=== PATIENT | male | born 1945 | race Caucasian/White ===

== ENCOUNTER 2021-04-05 07:04 | Day surgery (SDC) | payer OTHER ==
--- NOTE | 2021-04-04 17:25 | RAD REPORT ---
EXAM DESCRIPTION: RAD - Chest Pa And Lat (2 Views) - 04/04/2021 5:16 pm CLINICAL HISTORY: PRE-OP COMPARISON: <Comparisons> FINDINGS: Lines: None. Lungs: No evidence of edema or pneumonia. Nodule located peripherally in the right mid lung. Pleural: No significant pleural effusions or pneumothorax. Cardiac: The heart size is within normal limits. Bones: No acute fractures. Other: IMPRESSION: No acute cardiopulmonary disease.
[2021-04-04 17:32] LABS: Absolute Lymphocytes (CBC) 1.8 K/uL (0.7-4.9); Basophils % 1.2 % (0-1.3); Hematocrit 42.6 % (39.6-49.0); Lymphocytes % 33.6 % (15.3-44.8); MPV 6.1 fL (7.6-11.3); RBC Red Blood Cell Count 4.37 M/uL (4.33-5.43)
[2021-04-04 17:48] LABS: Potassium 4.2 mmol/L (3.5-5.1)
[2021-04-05] MEDS ORDERED: LIDOCAINE 1% MPF 5 ML VIAL ONE (07:13)
[2021-04-05] MEDS ORDERED: FENTANYL CITR 100 MCG/2 ML ONE (07:13)
[2021-04-05] MEDS ORDERED: propofoL 200 MG/20 ML VIAL IV ONE (07:13)
[2021-04-05] MEDS ORDERED: Ringers Lactate 1,000 ML IV ONE (07:19)
[2021-04-05] MEDS ORDERED: CEFAZOLIN/NS 1gm 1 GM/50 ML BAG ONE (07:19)
[2021-04-05] MEDS ORDERED: ACETAMINOPHEN 500 MG TAB ONE (07:35)
[2021-04-05] MEDS ORDERED: CELECOXIB 100 MG CAPSULE ONE (07:35)
[2021-04-05] MEDS ORDERED: BUPIVACAINE 0.5% PF 10 ML VIAL ONE (07:49)
[2021-04-05] MEDS ORDERED: EPHEDRINE SULF 50 MG/ML VIAL ONE (08:17)
[2021-04-05] MEDS ORDERED: NS 0.9% VIAL 10 ML ONE (08:17)
[2021-04-05] MEDS ORDERED: KETOROLAC 30 MG/ML INJ ONE (08:40)
[2021-04-05] MEDS ORDERED: ONDANSETRON 4 MG/2 ML VIAL ONE (08:42)
[2021-04-05] MEDS ORDERED: Mastisol Adhesive Liq ONE (08:54)
[2021-04-05 09:19] VITALS: TEMP 97.8
[2021-04-05] MEDS ORDERED: HYDROCODONE/APAP 7.5/325 MG TAB ONE (09:58)
[2021-04-05] MEDS ORDERED: OPIUM/BELLADONNA SUPPOS (30-16.2 MG) PR ONE (09:58)
--- NOTE | 2021-04-05 10:02 | OP ---
Date of Procedure: 04/05/2021 Surgeon: Crow Small MD Paragliding Instructor: Sander Inman, surgical scrub technician. Preoperative Diagnosis: Right inguinal hernia. Postoperative Diagnosis: Right inguinal hernia. Procedure: Repair of right inguinal hernia. Estimated Blood Loss: Minimal. Specimen: None. Findings: Direct right inguinal hernia. Anesthesia: General. Complications: None. Disposition: The patient tolerated procedure in stable condition, taken to Recovery in good general condition. Procedure In Detail: The patient was brought to the OR and placed in supine position. General anest hesia begun. The patient was prepped and draped in usual sterile fashion. Marcaine 0.5% was infiltr ated in a field block fashion in the right groin and then 15-blade was used to make a 4 cm oblique in cision between the pubic tubercle and the anterior iliac superior spine. Subcutaneous tissue divided . Markie's fascia identified and divided. Aponeurosis was identified. It was scarred in from previ ous appendectomy incision and it was mobilized inferiorly to expose the shelving edge, and then cord was mobilized at the pubic tubercle, skeletonized. There was no indirect sac present, however in the inguinal floor there was a direct inguinal hernia approximately 2.5 cm defect remained there with pr eperitoneal fat protruding, this was reduced back into the peritoneal cavity and this direct hernia w as primarily closed with 2-0 Prolene running suture and then new internal ring was created which was very snug and Marlex onlay mesh was placed on the inguinal floor, secured medially to the pubic tuber chandan, inferiorly to the shelving edge, superior to the conjoined tendon, laterally to each other. The n cord structure and ilioinguinal nerve placed back in anatomical location. Markie's fascia closed wi th 300 chromic. 4-0 Monocryl used to close skin. Sterile dressing applied. The patient awakened an d taken to Recovery in good general condition. Discharge Note: The patient will go to Day Surgery and home when stable. Disposition: Home. Condition: Stable. Discharge Instructions: Resume home medications and diet. Activity as tolerated. No heavy lifting. Remove outer dressing in 2 days. Shower. Keep wound clean and dry. Ice pack. Keep Steri-Strips on at all times. Scrotal support as needed. Follow up in my office in a week. Call for appointment . Tylenol No. 3, one p.o. q.4 p.r.n. pain. /MODL Voice ID: [id number] Report ID: [id number]
[2021-04-05 10:54] VITALS: BP 160/75; O2SAT 100
== END 2021-04-05 11:05 | disposition home or self-care (01) ==
LOC: OR 07:04
PROVIDERS: ATTEND Surgery
PROC: 0YQ50ZZ Repair Right Inguinal Region, Open Approach (ICD-10-PCS; principal; 2021-04-05 08:15)
DX: K40.90 Unilateral inguinal hernia, without obstruction or gangrene, not specified as recurrent (principal); Z20.822 Contact with and (suspected) exposure to COVID-19
CPT/HCPCS: 93005; 85025; 80048; 36415; 71046; 49505; U0003; J2704; J3010; J0690; J7120; J2405